=== PATIENT | female | born 1990 | race Caucasian/White ===

== ENCOUNTER → 2017-05-04 | Outpatient (CLI) | payer BC, OTHER ==
[2017-05-04 19:12] LABS: FREE T4 (FREE THYROXINE) 0.88 ng/dL (0.78-2.19)
[2017-05-04 19:26] LABS: THYROID STIMULATING HORMONE 0.72 uIU/mL (0.47-4.68)
== END ==
LOC: OD 17:41
PROVIDERS: ATTEND Psychiatry & Neurology Psychiatry
DX: F33.1 Major depressive disorder, recurrent, moderate (principal); Z79.899 Other long term (current) drug therapy
CPT/HCPCS: 36415; 84439; 84443